=== PATIENT | female | born 1965 | race African-American/Black ===

== ENCOUNTER 2023-02-04 11:39 | Observation (INO) | payer BC, SELFPAY ==
[2023-02-04] MEDS ORDERED: Meclizine HCl 25 MG TAB ONE (12:11)
[2023-02-04 12:14] LABS: #Monocytes 0.7 10x3/uL (0.0-1.1); #Neutrophils 9.7 10x3/uL (1.5-8.4); %Basophils 0.1 % (0.0-2.0); %Eosinophils 0.1 % (0.0-6.0); %Lymphocytes 19.7 % (18.0-47.0); %Neutrophils 74.6 % (40.0-75.0); Hemoglobin 13.1 g/dL (12.0-15.5); Mean Corpuscular HGB CONC 32.2 g/dL (32.0-36.0); Mean Corpuscular Hemoglobin 27.6 pg (27.0-33.0); Mean Corpuscular Volume 85.9 fl (81.6-98.3); Mean Platelet Volume 11.5 fl (7.4-10.4); Platelet Count 223 10x3/uL (150-450); RBC Distribution Width 13.8 % (11.5-14.5); Red Blood Cell (RBC) Count 4.74 10x6/uL (3.90-5.03); White Blood Cell (WBC) Count 12.9 10x3/uL (3.5-10.5)
[2023-02-04 12:27] LABS: ALT (SGPT) 17 U/L (8-55); AST (SGOT) 14 U/L (5-34); Albumin 4.2 g/dL (3.5-5.0); Alkaline Phosphatase 117 U/L (40-110); Anion Gap 16 mmol/L (10-20); BUN (Urea Nitrogen) 14 mg/dL (9.8-20.1); Bilirubin, Total 0.3 mg/dL (0.2-1.2); Calc. Creatinine Clearance 0 mL/min (70-130); Calcium 9.2 mg/dL (7.8-10.44); Carbon Dioxide 26 mmol/L (22-29); Chloride 104 mmol/L (98-107); Estimated GFR 79; Globulin 3.5 g/dL (2.4-3.5); Glucose 149 mg/dL (70-105); Potassium 3.9 mmol/L (3.5-5.1); Protein, Total 7.7 g/dL (6.0-8.3); Sodium 142 mmol/L (136-145)
[2023-02-04 14:08] LABS: Troponin I 0.041 ng/mL (< 0.028)
[2023-02-04] MEDS ORDERED: Aspirin Chewable 81 MG TAB ONE (14:29)
[2023-02-04] MEDS ORDERED: Ondansetron ODT 4 MG TAB PO PRN (15:01)
[2023-02-04] MEDS ORDERED: Ondansetron PF 4 MG/2 ML Vial IVP PRN (15:01)
[2023-02-04] MEDS ORDERED: Acetaminophen 325 MG TAB PO PRN (15:01)
[2023-02-04] MEDS ORDERED: HumaLOG 300 UNITS/3 ML VIAL SC PRN ×2 (15:04)
[2023-02-04] MEDS ORDERED: Dextrose 5% in Water 1,000 ML IV PRN (15:04)
[2023-02-04] MEDS ORDERED: Dextrose 50% Abboject 50 ML SYRINGE SLOW IVP PRN (15:04)
[2023-02-04 15:37] LABS: Magnesium 1.8 mg/dL (1.6-2.6)
[2023-02-04] MEDS ORDERED: hydrALAZINE 20 MG/ML VIAL SLOW IVP PRN (15:49)
[2023-02-04 16:17] VITALS: BMI 39.6
[2023-02-04] MEDS ORDERED: Carvedilol 3.125 MG TAB PO SCH (17:00)
[2023-02-04 17:57] LABS: Troponin I 0.035 ng/mL (< 0.028)
[2023-02-04 20:23] LABS: Troponin I 0.041 ng/mL (< 0.028)
[2023-02-04] MEDS: Sertraline 100 MG TAB PO SCH (20:51)
[2023-02-04] MEDS: Oxybutynin 5 MG TAB PO SCH (20:51)
[2023-02-04] MEDS: Cephalexin 500 MG CAP PO SCH (20:51)
[2023-02-04 21:22] LABS: Hemoglobin A1c 6.5 % (4.0-6.0)
[2023-02-05 05:35] LABS: #Basophils 0.1 10x3/uL (0.0-0.2); #Eosinphils 0.1 10x3/uL (0.0-0.5); #Monocytes 0.6 10x3/uL (0.0-1.1); %Basophils 0.7 % (0.0-2.0); %Eosinophils 1.4 % (0.0-6.0); %Lymphocytes 43.6 % (18.0-47.0); %Monocytes 7.3 % (0.0-10.0); %Neutrophils 46.5 % (40.0-75.0); Hemoglobin 12.8 g/dL (12.0-15.5); Mean Corpuscular HGB CONC 31.7 g/dL (32.0-36.0); Mean Corpuscular Hemoglobin 27.5 pg (27.0-33.0); Mean Corpuscular Volume 86.7 fl (81.6-98.3); Mean Platelet Volume 11.8 fl (7.4-10.4); Platelet Count 213 10x3/uL (150-450); RBC Distribution Width 13.7 % (11.5-14.5); Red Blood Cell (RBC) Count 4.66 10x6/uL (3.90-5.03); White Blood Cell (WBC) Count 8.6 10x3/uL (3.5-10.5)
[2023-02-05 05:50] LABS: Anion Gap 16 mmol/L (10-20); BUN (Urea Nitrogen) 17 mg/dL (9.8-20.1); Calc. Creatinine Clearance 135 mL/min (70-130); Calcium 8.5 mg/dL (7.8-10.44); Carbon Dioxide 26 mmol/L (22-29); Chloride 101 mmol/L (98-107); Estimated GFR 75; Glucose 147 mg/dL (70-105); Potassium 3.6 mmol/L (3.5-5.1); Sodium 139 mmol/L (136-145)
[2023-02-05] MEDS: Carvedilol 6.25 MG TAB PO SCH ×2 (08:50→18:07)
[2023-02-05] MEDS: Cephalexin 500 MG CAP PO SCH ×2 (09:00→21:36)
[2023-02-05] MEDS: Oxybutynin 5 MG TAB PO SCH ×2 (09:00→21:36)
[2023-02-05] MEDS: Diltiazem HCl CD 300 mg Capsule PO SCH (09:00)
[2023-02-05] MEDS: Aspirin Chewable 81 MG TAB PO SCH (09:00)
[2023-02-05] MEDS ORDERED: Ondansetron ODT 4 MG TAB PO PRN (17:42)
[2023-02-05] MEDS: Sertraline 100 MG TAB PO SCH (21:36)
[2023-02-06 05:13] LABS: Hemoglobin 13.5 g/dL (12.0-15.5); Mean Corpuscular HGB CONC 32.4 g/dL (32.0-36.0); Mean Corpuscular Hemoglobin 27.7 pg (27.0-33.0); Mean Corpuscular Volume 85.5 fl (81.6-98.3); Mean Platelet Volume 11.6 fl (7.4-10.4); Platelet Count 215 10x3/uL (150-450); RBC Distribution Width 13.6 % (11.5-14.5); Red Blood Cell (RBC) Count 4.88 10x6/uL (3.90-5.03)
[2023-02-06 05:34] LABS: Anion Gap 12 mmol/L (10-20); BUN (Urea Nitrogen) 18 mg/dL (9.8-20.1); Calc. Creatinine Clearance 141 mL/min (70-130); Calcium 8.5 mg/dL (7.8-10.44); Carbon Dioxide 29 mmol/L (22-29); Chloride 103 mmol/L (98-107); Estimated GFR 79; Glucose 123 mg/dL (70-105); Sodium 140 mmol/L (136-145)
[2023-02-06 05:37] LABS: MDiff Complete? YES
[2023-02-06 05:45] LABS: Band 2 % (5-11); Lymphocytes 48 % (21-51); Neutrophil 37 % (42-75)
[2023-02-06 05:46] LABS: Eosinophils 5 % (0-10); Monocytes 8 % (0-10)
[2023-02-06 05:47] LABS: Platelet Morphology Comment Appears Adequate; RBC Morphology Normal
[2023-02-06] MEDS: Carvedilol 6.25 MG TAB PO SCH (08:57)
[2023-02-06] MEDS: Aspirin Chewable 81 MG TAB PO SCH (08:57)
[2023-02-06] MEDS: Oxybutynin 5 MG TAB PO SCH (08:58)
[2023-02-06] MEDS: Diltiazem HCl CD 300 mg Capsule PO SCH (08:58)
[2023-02-06] MEDS: Cephalexin 500 MG CAP PO SCH (08:58)
[2023-02-06 12:46] VITALS: BP 170/84; TEMP 97.8
== END 2023-02-06 15:03 | disposition home health service (06) ==
LOC: CSHERS 11:39 → CSHTELE 15:41
PROVIDERS: ADMIT Internal Medicine; ATTEND Internal Medicine
DX: R07.89 Other chest pain (principal); R42 Dizziness and giddiness; R06.02 Shortness of breath; R00.1 Bradycardia, unspecified; I48.0 Paroxysmal atrial fibrillation; I12.9 Hypertensive chronic kidney disease with stage 1 through stage 4 chronic kidney disease, or unspecified chronic kidney disease; N18.2 Chronic kidney disease, stage 2 (mild); E11.9 Type 2 diabetes mellitus without complications; D72.829 Elevated white blood cell count, unspecified; Z87.891 Personal history of nicotine dependence; Z88.6 Allergy status to analgesic agent; Z88.8 Allergy status to other drugs, medicaments and biological substances; Z79.84 Long term (current) use of oral hypoglycemic drugs; Z79.899 Other long term (current) drug therapy
CPT/HCPCS: 36415; 36416; 71045; 80048; 80053; 83036; 83735; 84443; 84484; 85025; 85379; 93005; 93306; 94760; 96360; 96361; 96372; 96374; G0378; J0360; J1650

== ENCOUNTER 2023-10-04 10:06 | Inpatient (IN) | payer SELFPAY ==
[2023-10-04 11:16] LABS: #Basophils 0.1 10x3/uL (0.0-0.2); #Eosinphils 0.1 10x3/uL (0.0-0.5); #Monocytes 0.6 10x3/uL (0.0-1.1); #Neutrophils 3.1 10x3/uL (1.5-8.4); %Eosinophils 2.1 % (0.0-6.0); %Lymphocytes 35.8 % (18.0-47.0); %Monocytes 9.6 % (0.0-10.0); %Neutrophils 51.2 % (40.0-75.0); Hematocrit 40.1 % (34.9-44.5); Hemoglobin 12.9 g/dL (12.0-15.5); Mean Corpuscular HGB CONC 32.2 g/dL (32.0-36.0); Mean Corpuscular Hemoglobin 27.9 pg (27.0-33.0); Mean Corpuscular Volume 86.8 fl (81.6-98.3); Mean Platelet Volume 11.6 fl (7.4-10.4); Platelet Count 193 10x3/uL (150-450); RBC Distribution Width 13.8 % (11.5-14.5); Red Blood Cell (RBC) Count 4.62 10x6/uL (3.90-5.03); White Blood Cell (WBC) Count 6.1 10x3/uL (3.5-10.5)
[2023-10-04 11:29] LABS: ALT (SGPT) 15 U/L (8-55); AST (SGOT) 15 U/L (5-34); Albumin 4.1 g/dL (3.5-5.0); Alkaline Phosphatase 118 U/L (40-110); Anion Gap 14 mmol/L (10-20); BUN (Urea Nitrogen) 13 mg/dL (9.8-20.1); Bilirubin, Total 0.3 mg/dL (0.2-1.2); Calc. Creatinine Clearance 0 mL/min (70-130); Calcium 9.5 mg/dL (7.8-10.44); Carbon Dioxide 28 mmol/L (22-29); Chloride 104 mmol/L (98-107); Estimated GFR 77; Globulin 3.6 g/dL (2.4-3.5); Glucose 93 mg/dL (70-105); Potassium 4.1 mmol/L (3.5-5.1); Protein, Total 7.7 g/dL (6.0-8.3); Sodium 142 mmol/L (136-145)
[2023-10-04] MEDS ORDERED: Magnevist 469MG/ML 20 ML VIAL ONE (12:34)
[2023-10-04] MEDS ORDERED: Iopamidol 370 76% 100 ML VIAL ONE (12:34)
[2023-10-04] MEDS ORDERED: HumaLOG 300 UNITS/3 ML VIAL SC PRN (15:45)
[2023-10-04] MEDS ORDERED: Dextrose 5% in Water 1,000 ML IV PRN (15:45)
[2023-10-04] MEDS ORDERED: Glucagon 1 MG/ML KIT IM PRN (15:45)
[2023-10-04] MEDS ORDERED: Dextrose 50% Abboject 50 ML SYRINGE SLOW IVP PRN (15:45)
[2023-10-04 16:08] VITALS: BMI 40.8
[2023-10-04] MEDS: Sertraline 100 MG TAB PO SCH (21:26)
[2023-10-04] MEDS: Atorvastatin Calcium 40 MG TAB PO SCH (21:26)
[2023-10-05 04:20] LABS: #Basophils 0.1 10x3/uL (0.0-0.2); #Eosinphils 0.2 10x3/uL (0.0-0.5); #Monocytes 0.7 10x3/uL (0.0-1.1); #Neutrophils 2.8 10x3/uL (1.5-8.4); %Eosinophils 3.1 % (0.0-6.0); %Lymphocytes 39.3 % (18.0-47.0); %Monocytes 10.6 % (0.0-10.0); %Neutrophils 45.8 % (40.0-75.0); Hematocrit 41.6 % (34.9-44.5); Hemoglobin 13.3 g/dL (12.0-15.5); Mean Corpuscular Hemoglobin 27.8 pg (27.0-33.0); Mean Platelet Volume 11.7 fl (7.4-10.4); Platelet Count 193 10x3/uL (150-450); RBC Distribution Width 13.9 % (11.5-14.5); Red Blood Cell (RBC) Count 4.78 10x6/uL (3.90-5.03); White Blood Cell (WBC) Count 6.1 10x3/uL (3.5-10.5)
[2023-10-05 04:35] LABS: Anion Gap 17 mmol/L (10-20); BUN (Urea Nitrogen) 12 mg/dL (9.8-20.1); Calc. Creatinine Clearance 110 mL/min (70-130); Calcium 8.8 mg/dL (7.8-10.44); Carbon Dioxide 25 mmol/L (22-29); Cardiac Risk 4.3 (Less than 4.5); Chloride 104 mmol/L (98-107); Cholesterol 201 mg/dl (< 200 Desired); Estimated GFR 70; Glucose 128 mg/dL (70-105); HDL Cholesterol 47 mg/dL (>60 Neg Risk); LDL Cholesterol, Calculated 133 mg/dL; Potassium 3.8 mmol/L (3.5-5.1); Sodium 142 mmol/L (136-145); Triglycerides 104 mg/dL (Less than 150)
[2023-10-05 12:23] LABS: Hemoglobin A1c 6.1 % (4.0-6.0)
[2023-10-05] MEDS: Aspirin 81 mg Enteric Coated Tablet PO SCH (12:37)
[2023-10-05] MEDS: Sertraline 100 MG TAB PO SCH (21:30)
[2023-10-05] MEDS: Atorvastatin Calcium 40 MG TAB PO SCH (21:30)
[2023-10-06] MEDS: hydrALAZINE 20 MG/ML VIAL SLOW IVP PRN (01:59)
[2023-10-06] MEDS: Aspirin 81 mg Enteric Coated Tablet PO SCH (09:30)
[2023-10-06] MEDS ORDERED: dilTIAZem CD 300 MG CAP PO SCH (12:30)
[2023-10-06] MEDS ORDERED: Oxybutynin 5 MG TAB PO SCH (12:30)
[2023-10-06] MEDS ORDERED: Naproxen 500 MG TAB PO PRN (12:45)
[2023-10-06] MEDS: Sertraline 100 MG TAB PO SCH (21:34)
[2023-10-06] MEDS: Atorvastatin Calcium 40 MG TAB PO SCH (21:34)
[2023-10-07] MEDS: hydrALAZINE 20 MG/ML VIAL SLOW IVP PRN (01:52)
[2023-10-07] MEDS: Acetaminophen 325 MG TAB PO PRN ×2 (04:50→08:44)
[2023-10-07] MEDS: dilTIAZem CD 300 MG CAP PO SCH (08:43)
[2023-10-07] MEDS: Aspirin 81 mg Enteric Coated Tablet PO SCH (08:43)
[2023-10-07] MEDS: Oxybutynin 5 MG TAB PO SCH (08:44)
[2023-10-07] MEDS ORDERED: Aspirin 81 mg Enteric Coated Tablet PO SCH (09:00)
[2023-10-07] MEDS: Carvedilol 6.25 MG TAB PO SCH ×2 (13:44→17:47)
[2023-10-07] MEDS: Atorvastatin Calcium 40 MG TAB PO SCH (22:23)
[2023-10-07] MEDS: hydrALAZINE 25 MG TAB PO SCH (22:24)
[2023-10-07] MEDS: Sertraline 100 MG TAB PO SCH (22:24)
[2023-10-08 03:38] LABS: #Basophils 0.1 10x3/uL (0.0-0.2); #Eosinphils 0.2 10x3/uL (0.0-0.5); #Monocytes 0.8 10x3/uL (0.0-1.1); %Basophils 1.2 % (0.0-2.0); %Eosinophils 3.2 % (0.0-6.0); %Lymphocytes 39.1 % (18.0-47.0); %Monocytes 11.6 % (0.0-10.0); %Neutrophils 44.4 % (40.0-75.0); Hematocrit 39.9 % (34.9-44.5); Mean Corpuscular HGB CONC 32.6 g/dL (32.0-36.0); Mean Corpuscular Hemoglobin 28.3 pg (27.0-33.0); Mean Corpuscular Volume 86.7 fl (81.6-98.3); Mean Platelet Volume 11.7 fl (7.4-10.4); Platelet Count 180 10x3/uL (150-450); RBC Distribution Width 13.8 % (11.5-14.5); White Blood Cell (WBC) Count 6.6 10x3/uL (3.5-10.5)
[2023-10-08 04:19] LABS: Anion Gap 12 mmol/L (10-20); BUN (Urea Nitrogen) 15 mg/dL (9.8-20.1); Calc. Creatinine Clearance 121 mL/min (70-130); Calcium 8.5 mg/dL (7.8-10.44); Carbon Dioxide 25 mmol/L (22-29); Chloride 105 mmol/L (98-107); Estimated GFR 79; Glucose 112 mg/dL (70-105); Potassium 3.7 mmol/L (3.5-5.1); Sodium 138 mmol/L (136-145)
[2023-10-08] MEDS ORDERED: Carvedilol 25 MG TAB PO SCH ×2 (08:30→17:00)
[2023-10-08] MEDS: Carvedilol 6.25 MG TAB PO SCH ×2 (08:40→13:11)
[2023-10-08] MEDS: dilTIAZem CD 300 MG CAP PO SCH (08:47)
[2023-10-08] MEDS: Oxybutynin 5 MG TAB PO SCH (08:48)
[2023-10-08] MEDS: hydrALAZINE 25 MG TAB PO SCH ×2 (08:48→15:10)
[2023-10-08] MEDS: Aspirin 81 mg Enteric Coated Tablet PO SCH (08:48)
[2023-10-08 17:57] VITALS: BP 165/91; TEMP 97.7
== END 2023-10-08 18:30 | disposition home or self-care (01) | DRG 65 ==
LOC: CSHERS 10:06 → CSHERHOLD 13:25 → CSHTELE 15:40 → OBSVTOIN 10-06 09:15
PROVIDERS: ADMIT Internal Medicine; ATTEND Hospitalist
DX: I63.9 Cerebral infarction, unspecified (principal); I48.20 Chronic atrial fibrillation, unspecified; Z88.8 Allergy status to other drugs, medicaments and biological substances; Z79.899 Other long term (current) drug therapy; Z79.84 Long term (current) use of oral hypoglycemic drugs; Z79.82 Long term (current) use of aspirin; F32.A Depression, unspecified; I10 Essential (primary) hypertension; E11.9 Type 2 diabetes mellitus without complications; Z90.710 Acquired absence of both cervix and uterus; Z98.890 Other specified postprocedural states; Z82.49 Family history of ischemic heart disease and other diseases of the circulatory system; E78.5 Hyperlipidemia, unspecified
CPT/HCPCS: 36415; 36416; 70496; 70498; 70553; 72148; 80048; 80053; 80061; 83036; 84443; 85025; 93005; 93010; 96372; 96374; A9579; G0378; J0360; J1650; Q9967